=== PATIENT | male | born 1990 | race Caucasian/White ===

== ENCOUNTER → 2024-11-06 | Outpatient (CLI) | payer OTHER ==
--- NOTE | 2024-11-07 15:47 | MR ---
EXAMINATION TYPE: MR lumbar spine wo/w con DATE OF EXAM: 11/06/2024 10:09 PM COMPARISON: None. CLINICAL INDICATION: Male, 34 years old with history of M54.16, low back pain, numbness down legs and twitching, numbness in testicles, burning pain in feet. IV Contrast: 7 cc Gadobutrol TECHNIQUE: Multiplanar, multisequence images of the lumbar spine were acquired without and with 7 mL intravenous Gadobutrol gadolinium contrast. FINDINGS: Alignment: The lumbar vertebral bodies have preserved heights and alignment. Cord: The conus medullaris and the distal spinal cord appear unremarkable with regards to their signa l intensity and morphology. No abnormal contrast enhancement. Bones/Discs: Bone signal is within normal limits. Anterior osteophyte at L5-S1. Disc desiccation with height loss at L5-S1 with type II Modic changes. Remaining discs demonstrate normal signal intensity and maintain height. T12-L1: No significant disc pathology. Spinal canal is patent. The neural foramen are patent. L1-L2: No significant disc pathology. Spinal canal is patent. The neural foramen are patent. L2-L3: No significant disc pathology. Spinal canal is patent. The neural foramen are patent. L3-L4: No significant disc pathology. Spinal canal is patent. The neural foramen are patent. L4-L5: Minimal broad-based disc bulge. No significant central canal or neural foraminal stenosis. L5-S1: Diffuse disc bulge without significant central canal stenosis. No significant neural foraminal stenosis. Other findings: None. IMPRESSION: 1. No definitive evidence of disc herniation or significant spinal canal stenosis. 2. 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 [facility], , 11/07/2024 3:45 PM
== END | disposition home or self-care (01) ==
LOC: RADMRIMAIN 21:30
PROVIDERS: ATTEND Family Medicine
DX: M51.16 Intervertebral disc disorders with radiculopathy, lumbar region (principal)
CPT/HCPCS: 72158; A9585